=== PATIENT | female | born 2000 | race Two or more races ===

== ENCOUNTER 2025-01-14 16:42 | Emergency (ER) | payer SELFPAY ==
[2025-01-14] VITALS (8 sets, daily range): BP systolic 106–120; BP diastolic 74–93; PULSE 82–122; RESP 7–22; TEMP 36.4–37.2; O2SAT 100; BMI 19.8
--- NOTE | 2025-01-14 18:50 | XR_ITS ---
Examination: Abdomen sonogram, Limited Date and time of exam: January 14, 2025, 2105 hours INDICATIONS: Onset abdominal pain today Technique: Real-time bronson scale transabdominal sonographic images of the upper abdomen obtained. Findings: Normal gallbladder Normal common bile duct 0.1 cm Pancreatic head 1.9 cm Liver normal size no liver lesions Normal hepatopetal portal venous send Patent IVC IMPRESSION: Normal gallbladder
--- NOTE | 2025-01-14 19:08 | PC.NURSE ---
AFTER INSERTION IV PT PASSED OUT TENSED UP BECAME DIAPHORETIC PT REGAINED CONSCIOUNESS WITH IN 5 SECONDS. NOTIFIED ADAIR BERRY. PT COMPLAING OF MUSCLE TENSE ARMS ARE CONTRACTED UP UNABLE TO EXTEND. NOTIFIED CHARGE FOR A BED ON OTHER SIDE APPLIED O2 PER ADAIR BERRY
--- NOTE | 2025-01-14 19:11 | EKG_ITS ---
[facility] Test Date: 2025-01-14 Pat Name: JOSÉ ANTONIO ALTMAN Department: Room: - Gender: Female [employer]: : 2000 Requested By: All Whatley Order Number: [id number] Reading MD: All Whatley Measurements Intervals Colona Rate: 88 P: 68 RI: 132 QRS: 43 QRSD: 80 T: 41 QT: 414 QTc: 503 Interpretive Statements SINUS RHYTHM Compared to ECG 01/22/2018 20:05:11 Sinus bradycardia no longer present Sinus arrhythmia no longer present /store/S0/[id number]/[id number].pdf
--- NOTE | 2025-01-14 19:14 | PD.EDRME ---
Rapid Medical Screening Exam RME Arrival date/time: 01/14/25 16:42 This is a case of 24-year-old female with no medical history came in in the emergency room due to abdominal pain nausea vomiting for 2 days worsening of the symptoms this patient decided to sought consult here in the emergency room Chief Complaint: Nausea/Vomiting/Diarrhea Time Seen by Provider: 01/14/25 18:31 Vital signs: Vital Signs Temperature 99.0 F 01/14/25 17:44 Pulse Rate 122 H 01/14/25 17:44 Respiratory Rate 19 01/14/25 17:44 Blood Pressure 120/89 H 01/14/25 17:44 Pulse Oximetry (%) 100 01/14/25 17:44 Oxygen Delivery Method Room Air 01/14/25 17:44 Exam: Abdominal exam benign nonsurgical no guarding no rebound no rigidity no tenderness Clinical Impression: Abdominal pain nausea vomiting
[2025-01-14 19:35] LABS: Basophils # (Auto) 0.0 Thou/mm3 (0.0-0.2); Basophils % (Auto) 0 % (0-2.5); Eosinophils # (Auto) 0.0 Thou/mm3 (0.0-0.5); Eosinophils % (Auto) 0 % (0-10); Hematocrit 39.4 % (36.0-46.0); Hemoglobin 12.4 g/dL (12.0-16.0); Immature Granulocytes Auto 0.03 Thou/mm3 (0.00-0.00); Lymphocytes # (Auto) 2.3 Thou/mm3 (1.0-4.8); Lymphocytes % (Auto) 25 % (10-50); Mean Corpuscular HGB Conc 31.5 g/dl (31.0-37.0); Mean Corpuscular Hemoglobin 19.3 pg (25.0-35.0); Mean Corpuscular Volume 61 fL (80-100); Monocytes # (Auto) 0.9 Thou/mm3 (0.0-0.8); Monocytes % (Auto) 9 % (0-12); Neutrophils # (Auto) 6.1 Thou/mm3 (1.8-7.7); Neutrophils % (Auto) 66 % (37-80); Nucleated Red Blood Cell # 0.00 Thou/mm3 (0.00-0.00); Nucleated Red Blood Cell % 0 /100 WBC (0); Platelet Count 437 Thou/mm3 (140-440); RDW Standard Deviation 36.7 fL (36.4-46.3); Red Blood Count 6.42 Miln/mm3 (4.00-5.20); White Blood Count 9.3 Thou/mm3 (3.6-11.0)
[2025-01-14] MEDS: SODIUM CHLORIDE 0.9% 1000 ML 1,000 ML 999 ML IV (19:40)
[2025-01-14] MEDS: ONDANSETRON INJ 2 MG/ML INJ 2 ML 4 MG IVP (19:40)
--- NOTE | 2025-01-14 19:57 | XR_ITS ---
Examination: Abdomen AP single view Technique: AP portable supine abdomen, single view Exam date and time: January 14-5209 6 hours Abdominal pain 1 week FINDINGS: Moderate stool throughout the colon No obstruction No free air Intact osseous structures IMPRESSION: Nonobstructive bowel gas pattern
[2025-01-14 20:01] LABS: Alanine Aminotransferase 12 U/L (10-49); Albumin, Serum 5.7 gm/dL (3.5-5.0); Albumin/Globulin Ratio 2.3 (1.2-2.2); Alkaline Phosphatase 63 U/L (46-116); Anion Gap 14 (7-16); Aspartate Amino Transferase 23 U/L (0-34); BUN/Creatinine Ratio 12 Ratio (12-20); Bilirubin,Total 1.0 mg/dL (0.3-1.2); Blood Urea Nitrogen 12 mg/dL (9-23); Calcium 10.8 mg/dL (8.3-10.6); Calcium (Corrected) 10.8 mg/dL (8.5-10.1); Carbon Dioxide 27.1 mMol/L (20.0-31.0); Chloride 84 mMol/L (98-107); Creatinine (Component) 1.0 mg/dL (0.6-1.3); Estimated Creatinine Clearance 79.7 mL/min (>60); Globulin 2.5 gm/dL (2.3-3.5); Glucose 114 mg/dL (74-106); Lipase 54 U/L (12-53); Osmolality,Calculated 252 (275-295); Potassium 2.9 mMol/L (3.4-5.1); Sodium 125 mMol/L (136-145); Total Protein 8.2 gm/dL (5.7-8.2); Troponin I < 0.002 ng/mL (0.0-0.045); eGFR > 60 See Note
--- NOTE | 2025-01-14 20:02 | EDNOTE_ITS ---
Nausea/Vomit./Diarrhea-RME/HPI General Chief complaint: Nausea/Vomiting/Diarrhea Stated complaint: N/V X 1 WEEK, EPIGASTRIC ABD PAIN Time Seen by Provider: 01/14/25 18:31 Arrival date/time: 01/14/25 16:42 RME / HPI RME / HPI Narrative: 01/14/25 16:42 CC: Nausea and Vomiting Patient is a 24-year-old female with a limited past medical history who presented via private vehicle with a chief complaint of abdominal pain, nausea and vomiting since 01/14/2025, after eating street food. Several episodes of emesis without any and nausea. Patient denied diarrhea. Denied suprapubic tenderness or pain with urination. Decreased appetite secondary to nausea.In the lobby, patient experienced pre-syncopal event. Related Data Previous Rx's ?Medication ?Instructions ?Recorded metoclopramide HCl 5 mg tablet 5 mg PO QDAY PRN nausea and 01/15/25 vomiting 7 days #7 tabs Allergies Allergy/AdvReac Type Severity Reaction Status Date / Time No Known Allergies Allergy Verified 01/14/25 16:45 Review of Systems Review of Systems Narrative Review of Systems: General appearance: NO weight change, NO fatigue, NO weakness, NO fever, NO chills, NO night sweats, No cough Skin: NO rash, NO itching, NO sores, NO moles HEENT: NO Trauma, NO nausea, NO vomiting, NO visual changes, NO blurry vision, NO double vision, NO tinnitus, NO vertigo, NO ear discharge, NO rhinorrhea, NO stuffiness, NO sneezing, NO allergy, NO epistaxis. NO Hoarseness, NO sore throat, NO swollen neck. Cardiac: NO Palpitations, NO dyspnea on exertion, NO orthopnea, NO paroxysmal nocturnal dyspnea, NO edema Respiratory: NO Shortness of Breath, NO Wheezing, NO Cough, NO Sputum, NO hemoptysis GI:Yes appetite, Yes nausea, Yes vomiting, NO dysphagia, NO changes in bowel frequency, NO stool color, NO diarrhea, NO constipation, NO hemetemesis, NO hemorrhoids, NO melena, NO hematechezia, NO abdominal pain, NO jaundice Renal: NO frequency, NO hesitancy, NO urgency, NO hematuria, NO nocturia, NO incontinence MSK: NO muscle weakness, NO gout, NO arthritis, NO muscle stiffness Neuro: NO headaches, NO tremors, NO weakness, NO paralysis, NO seizures, NO loss of consciousness, NO numbness. Hem: NO anemia, NO easy bruising/bleeding, NO petechiae, NO purpura Endo: NO heat/cold intolerance, NO excessive sweating, NO polyuria, NO polydipsia, NO polyphagia, NO thyroid problems, NO diabetes Pysch: NO mood, NO anxiety, NO depression ED Exam Narrative Physical exam: General Appearance: Alert & Oriented X3, well-nourished female who is lying in bed in no acute distress. HEENT: Skull symmetrical and atraumatic. Conjunctivae pin and moist. Pupils equal, round, reactive to light and accommodation (PERRL). External ear without lesion or discharge. Straight, nares patient, mucosa pink, no discharge. No thyroid nodule appreciated. No cervical lymphadenopathy. Cardio: Normal Rate and Rhythm with S1 and S2 heart sounds. No murmurs or extra heart sounds auscultated. No bruits on carotid auscultation. No peripheral edema or cyanosis. Lungs: Symmetric with good expansion. Chest and back non-tender. Breath sounds vesicular without crackles, wheezing or rhonchi Abdomen: No abdominal tenderness in ER room, Non-distended, Normal Reactive Bowel Sounds, NEGATIVE rodríguez Neuro: Alert, cooperative, oriented to person, place, and time. Speech clear. CN grossly intact. Upper motor strength 5/5 and Lower motor strength 5/5. Sensation intact. Course Course Course Narrative: CBC CMP Lipase EKG Lactic Acid KUB US gallbladder Quality Measures none Orders Category Date Time Status Bedside Blood Glucose NOW Care 01/14/25 19:17 Completed EKG (ED ONLY) *Do not use* NOW Care 01/14/25 19:11 Completed Insert IV NOW Care 01/14/25 19:38 Completed Orthostatic Vitals NOW Care 01/14/25 19:59 Completed EKG (ED Only) Stat Exams 01/14/25 19:11 Draft KUB [XR abdomen 1V] Stat Exams 01/14/25 19:57 Completed US gall bladder Stat Exams 01/14/25 18:50 Completed CBC Stat Lab 01/14/25 19:05 Completed CK [Creatine Kinase] Stat Lab 01/14/25 20:23 Completed Comprehensive Metabolic Panel Stat Lab 01/14/25 19:05 Completed HCG Qualitative,Urine Stat Lab 01/14/25 20:30 Completed Lactic Acid [Lactate (Lactic Acid)] Stat Lab 01/14/25 20:23 Completed Lactic Acid, 3 HR Stat Lab 01/14/25 23:52 Completed Lipase Stat Lab 01/14/25 19:05 Completed Path Review Blood Smear Stat Lab 01/14/25 19:05 Completed Renal Function Panel Stat Lab 01/14/25 20:23 Completed Renal Function Panel Stat Lab 01/15/25 00:17 Completed Troponin I Stat Lab 01/14/25 19:05 Completed Urinalysis Stat Lab 01/14/25 20:30 Completed Ondansetron Inj [Zofran Inj] Med 01/14/25 18:50 Discontinued 4 mg IVP X1 ONE POTASSIUM CHL 10 mEq IVPB [Kcl Ivpb] Med 01/14/25 22:26 Discontinued 10 meq in 100 ml IV Q1H POTASSIUM CHL 10% Liq 15 ML Med 01/14/25 22:26 Discontinued 40 meq PO X1 ONE Pantoprazole Inj [Protonix Inj] Med 01/14/25 18:50 Discontinued 40 mg IVP X1 ONE Sodium Chloride 0.9% 1000 ml [Ns] 1,000 ml Med 01/15/25 00:25 Discontinued IV 80 mls/hr Sodium Chloride 0.9% 1000 ml [Ns] 1,000 ml Med 01/14/25 18:50 Discontinued IV 999 mls/hr EKG (RT) Stat RT 01/14/25 19:59 Stop Req Vital Signs Vital signs: Vital Signs Temperature 99.0 F 01/14/25 17:44 Pulse Rate 122 H 01/14/25 17:44 Respiratory Rate 19 01/14/25 17:44 Blood Pressure 120/89 H 01/14/25 17:44 Pulse Oximetry (%) 100 01/14/25 17:44 Oxygen Delivery Method Room Air 01/14/25 17:44 Nausea/Vomiting/Diarrhea Patient data External records reviewed:: [facility] previous records Clinical information provided by:: patient Social determinants that could affect healthcare access:: none Patient has the following chronic illnesses:: None How is presenting disease/condition affected by chronic disease/condition?: no chronic disease Evaluation data The following diagnostics were reviewed and interpreted by me:: lab results, radiology exam(s) and EKG tracing(s) Lab and/or radiology exams considered but not ordered:: None Interpretation Summary: Patient is a 24-year-old female with a negative past medical history who presented to the emergency room with a chief complaint of abdominal pain nausea and vomiting ongoing for approximately 1 day. Patient stated has had decreased appetite. Physical exam, no abdominal tenderness upon ER bed and negative Rodríguez sign. No leukocytosis on CBC hyponatremia and hypokalemia noted likely secondary to emesis. Lipase 54 negative left upper quadrant pain. UA negative. hCG negative. KUB negative gallbladder ultrasound negative. Patient experienced a vasovagal when blood was being drawn and likely dehydrated from repeated emesis. #Vasovagal #Abdominal Pain #Gastritis - The patient's plan was discussed with attending Dr. Brenden King MD PGY2 Internal Medicine Medications / Prescriptions Medications / Prescriptions considered but not ordered:: none Medication administrations:: Medication Administration History Discontinued Medications Sodium Chloride (Ns) 1,000 mls @ 999 mls/hr IV .Q1H1M ONE Stop: 01/14/25 19:50 Last Infusion: 01/14/25 20:54 Dose: Infused Documented By: Admin: 01/14/25 19:40 Dose: 999 mls/hr Documented By: KIESHA Potassium Chloride (Kcl Ivpb) 10 meq in 100 mls @ 100 mls/hr IV Q1H ALYSSA Stop: 01/15/25 00:25 Last Infusion: 01/15/25 01:31 Dose: Infused Documented By: Admin: 01/14/25 23:57 Dose: 90 mls/hr Documented By: Infusion: 01/14/25 23:53 Dose: Infused Documented By: Admin: 01/14/25 22:47 Dose: 100 mls/hr Documented By: ROSY Sodium Chloride (Ns) 1,000 mls @ 80 mls/hr IV .[id number] ONE Stop: 01/15/25 12:54 Last Admin: 01/15/25 00:55 Dose: 80 mls/hr Documented By: ROSY Ondansetron HCl (Ondansetron Inj 2 Mg/Ml Inj 2 Ml) 4 mg IVP X1 ONE; Protocol Stop: 01/14/25 18:51 Last Admin: 01/14/25 19:40 Dose: 4 mg Documented By: KIESHA Pantoprazole Sodium (Pantoprazole Inj 40 Mg Vial) 40 mg IVP X1 ONE Stop: 01/14/25 18:51 Last Admin: 01/14/25 19:40 Dose: 40 mg Documented By: KIESHA Potassium Chloride (Potassium Chloride 10% 20 Meq/15 Ml Udc) 40 meq PO X1 ONE Stop: 01/14/25 22:27 Last Admin: 01/14/25 22:48 Dose: 40 meq Documented By: ROSY Same as above Consultations Consultation(s) initiated? (list below): No Diagnosis Nausea Differential Diagnosis: food poisoning, gastroenteritis, dehydration and other (cholelithiasis ) Most likely diagnosis given after review of the tests above:: Patient is a 24-year-old female with a negative past medical history who presented to the emergency room with a chief complaint of abdominal pain nausea and vomiting ongoing for approximately 1 day. Patient stated has had decreased appetite. Physical exam, no abdominal tenderness upon ER bed and negative Rodríguez sign. No leukocytosis on CBC hyponatremia and hypokalemia noted likely secondary to emesis. Lipase 54 negative left upper quadrant pain. UA negative. hCG negative. KUB negative gallbladder ultrasound negative. Patient experienced a vasovagal when blood was being drawn and likely dehydrated from repeated emesis. #Vasovagal #Abdominal Pain #Gastritis - The patient's plan was discussed with attending Dr. Brenden King MD PGY2 Internal Medicine Admission Indicated Admission indicated?: not indicated Admission Request Was there a request for admission?: No Disposition Plan Disposition Plan: Discharge Discharge Attestation Discharge Attestation: The patient and all family members were given an opportunity to ask questions and understood the discharge instructions. Discharge instructions specifically effects, indications for sooner follow up or return to the emergency department, and the expected course of current diagnosis. Patient condition: Stable Discharge Plan Plan Patient Disposition: HOME (Self Care) Patient condition on transfer: Stable Health Concerns: Instructions: -You have been diagnosed with a vasovagal when you passed. -Please metoclopramide 5 mg once daily for nausea and vomiting as NEEDED. -Please stay hydrated with fluids as you had low potassium and sodium in your labs from vomiting. -Please follow up with your primary care provider within one week of discharge -If your symptoms worsen,please seek immediate medical attention and return to your nearest emergency room -If you do not have a primary care provider, you may follow up at the [facility] at [address], [place] [address], Prescriptions/Referrals Prescriptions/Med Rec: New metoclopramide HCl 5 mg tablet 5 mg PO QDAY PRN (Reason: nausea and vomiting) 7 Days Qty: 7 0RF Discontinued metoclopramide HCl [Reglan] 10 mg tablet 10 mg PO Q6H PRN (Reason: nausea and vomiting) Qty: 20 0RF Referrals: No Primary/Family,Physician [Primary Care Provider] - In 1 week Problem List Clinical Impression: Syncope, vasovagal, Abdominal pain, Gastritis Patient/Caregiver Discharge Instructions Education Materials: Abdominal Pain, Treatment for Vasovagal Syncope Print Language: Ghanaian Stand Alone Forms: Bailee Award Info., Patient Portal Info Letter
[2025-01-14 20:18] LABS: Path Review Blood Smear Sent to Pathologist
[2025-01-14 20:41] LABS: Lactate (Lactic Acid) 3.7 mMol/L (0.4-2.0)
[2025-01-14 20:47] LABS: Collection Type, Urine Clean Catch
[2025-01-14 20:48] LABS: HCG Qualitative,Urine Negative
[2025-01-14 21:02] LABS: Amorphous Crystals,Urine Present (Absent); Bacteria,Urine Rare; Bilirubin,Urine Negative (Negative); Blood,Urine Negative (Negative); Clarity,Urine Turbid (Clear/Hazy); Color,Urine Lt-Yellow (Lt Yel-Yel); Glucose, Urine Negative (Negative); Ketones,Urine Negative (Negative); Leukocyte Esterase,Urine Negative (Negative); Nitrite,Urine Negative (Negative); PH,Urine 7.0 (5.0-7.0); Protein,Urine Trace (Neg - Trace); RBC,Urine 2 /hpf (0-3); Specific Gravity,Urine 1.007 (1.001-1.035); Squamous Epithelial Cell,Urine 2 /hpf (0-5); Urobilinogen,Urine Negative mg/dL (0.0-1.0); WBC,Urine 4 /hpf (0-5)
[2025-01-14 21:11] LABS: Albumin, Serum 5.0 gm/dL (3.5-5.0); Anion Gap 13 (7-16); BUN/Creatinine Ratio 13 Ratio (12-20); Blood Urea Nitrogen 12 mg/dL (9-23); Calcium 9.1 mg/dL (8.3-10.6); Carbon Dioxide 23.8 mMol/L (20.0-31.0); Chloride 91 mMol/L (98-107); Creatine Kinase 29 U/L (34-171); Creatinine (Component) 0.9 mg/dL (0.6-1.3); Estimated Creatinine Clearance 88.5 mL/min (>60); Glucose 114 mg/dL (74-106); Osmolality,Calculated 257 (275-295); Phosphorous 2.9 mg/dL (2.4-5.1); Potassium 2.9 mMol/L (3.4-5.1); Sodium 128 mMol/L (136-145); eGFR > 60 See Note
[2025-01-14 21:12] LABS: Calcium (Corrected) 9.1 mg/dL (8.5-10.1)
[2025-01-14] MEDS: POTASSIUM CHL 10 mEq IVPB 10 MEQ/100 ML BAG 100 MEQ IV (22:47)
[2025-01-14] MEDS: POTASSIUM CHLORIDE 10% 20 MEQ/15 ML UDC 40 MEQ PO (22:48)
[2025-01-14 23:37] LABS: Reflex Lactate? Y
[2025-01-14 23:56] LABS: Lactic Acid, 3 HR 1.8 mMol/L (0.4-2.0)
[2025-01-14] MEDS: POTASSIUM CHL 10 mEq IVPB 10 MEQ/100 ML BAG 90 MEQ IV (23:57)
[2025-01-15 00:42] LABS: Albumin, Serum 4.9 gm/dL (3.5-5.0); Anion Gap 11 (7-16); BUN/Creatinine Ratio 11 Ratio (12-20); Blood Urea Nitrogen 10 mg/dL (9-23); Calcium 9.0 mg/dL (8.3-10.6); Calcium (Corrected) 9.0 mg/dL (8.5-10.1); Carbon Dioxide 25.9 mMol/L (20.0-31.0); Chloride 94 mMol/L (98-107); Creatinine (Component) 0.9 mg/dL (0.6-1.3); Estimated Creatinine Clearance 88.5 mL/min (>60); Glucose 119 mg/dL (74-106); Osmolality,Calculated 262 (275-295); Phosphorous 3.1 mg/dL (2.4-5.1); Potassium 3.9 mMol/L (3.4-5.1); Sodium 131 mMol/L (136-145); eGFR > 60 See Note
[2025-01-15] MEDS: SODIUM CHLORIDE 0.9% 1000 ML 1,000 ML 80 ML IV (00:55)
[2025-01-15 01:33] VITALS: PULSE 87; RESP 14; O2SAT 97
== END 2025-01-15 01:33 | disposition home or self-care (01) ==
PROVIDERS: Nurse Practitioner Family; Emergency Provider Emergency Medicine
DX: K29.70 Gastritis, unspecified, without bleeding (principal)
CPT/HCPCS: 36415; 74018; 76705; 80053; 80069; 81001; 81025; 82550; 83605; 83690; 84484; 85025; 93005; 96361; 96365; 96366; 96375; 99284; J2405; J2470; J3480; J7030; A9270